=== PATIENT | male | born 1965 | race Caucasian/White ===

== ENCOUNTER 2021-12-07 02:20 | Emergency (ER) | payer SELFPAY | END 2021-12-07 03:00 | disposition left against medical advice (07) | LOC: MW.ED 02:20 | DX: Z53.21 Procedure and treatment not carried out due to patient leaving prior to being seen by health care provider (principal) ==

== ENCOUNTER 2022-10-23 13:38 | Emergency (ER) | payer BC ==
[2022-10-23] MEDS ORDERED: Lidocaine 5% 700 MG Patch TOP ONE (13:52)
[2022-10-23] MEDS ORDERED: Acetaminophen/oxyCODONE 325-5 MG Tab PO ONE (13:52)
[2022-10-23] MEDS ORDERED: Ibuprofen 600 MG Tab PO ONE (13:52)
== END 2022-10-23 15:50 | disposition home or self-care (01) ==
LOC: MW.ED 13:38
DX: S20.212A Contusion of left front wall of thorax, initial encounter (principal); Z88.5 Allergy status to narcotic agent; W01.0XXA Fall on same level from slipping, tripping and stumbling without subsequent striking against object, initial encounter
CPT/HCPCS: 71045; 71100; 99284; A9270; 99283